=== PATIENT | female | born 1960 | race Caucasian/White ===

== ENCOUNTER → 2017-09-18 | Outpatient (CLI) | payer OTHER ==
--- NOTE | 2017-09-18 18:12 | EEG Procedure Note ---
EEG Procedure Note Date of Service Sep 18, 2017. Start / End Times Start Time: 8:00am End Time: 9:00am Referring Physician ZEN Hernandez History This is a 57-year-old female with seizure-like activity. 1 hour extended EEG for further evaluation of possible seizure etiology. Description This is a 21 electrode EEG with a single channel dedicated to limited EKG. The electrodes were placed in accordance with the International 10-20 system. At the start of the recording the patient was in an awake state. Background was well organized and composed of symmetric mixed alpha and beta frequencies. There was a symmetric well-formed moderate amplitude 10-11 Hz posterior dominant rhythm that was reactive to eye opening and closure. Hyperventilation was not done. Intermittent photic stimulation at various frequencies produced no abnormalities. Sleep was indicated by vertex waves and symmetric sleep spindles. Interpretation This is a normal 1 hour extended EEG. There was no electrographic seizures or epileptiform discharges. Clinical Correlation A normal EEG does not rule out epilepsy if there is a strong clinical suspicion.
== END ==
LOC: C.NEUR 07:55
PROVIDERS: ATTEND Physician Assistant
DX: R56.9 Unspecified convulsions (principal)